=== PATIENT | female | born 1955 | race Caucasian/White ===

== ENCOUNTER 2022-08-20 06:04 | Day surgery (SDC) | payer MEDICARE, OTHER ==
[2022-08-19 08:48] LABS: BASOPHILS # (AUTO) 0.1 X10'3 (0-0.2); BASOPHILS % (AUTO) 0.9 % (0-1); EOSINOPHILS # (AUTO) 0.2 X10'3 (0-0.9); EOSINOPHILS % (AUTO) 2.9 % (0-6); HEMATOCRIT 34.4 % (35.0-45.0); HEMOGLOBIN 11.5 g/dl (12.0-16.0); LYMPHOCYTES # (AUTO) 1.4 X10'3 (1.1-4.8); LYMPHOCYTES % (AUTO) 24.8 % (21-51); MEAN CORPUSCULAR HEMOGLOBIN 34.8 PG (27.0-31.0); MEAN CORPUSCULAR HGB CONC 33.4 g/dL (33.0-36.5); MEAN PLATELET VOLUME 8.9 FL (7.4-10.4); MONOCYTES # (AUTO) 0.4 X10'3 (0-0.9); MONOCYTES % (AUTO) 7.5 % (2-12); NEUTROPHILS # (AUTO) 3.5 X10'3 (1.8-7.7); NEUTROPHILS % (AUTO) 63.9 % (42-75); PLATELET COUNT 229 X10'3 (140-440); RED BLOOD COUNT 3.31 X10'6 (4.20-5.60); WHITE BLOOD COUNT 5.5 X10'3 (4.5-11.0)
[2022-08-19 08:55] LABS: ALBUMIN 3.5 G/DL (3.4-5.0); ANION GAP 8 (8-16); BLOOD UREA NITROGEN 21 MG/DL (7-18); BUN/CREATININE RATIO 17.8 (6.6-38.0); CALCIUM 8.4 MG/DL (8.5-10.1); CHLORIDE 109 MMOL/L (99-107); CREATININE 1.18 MG/DL (0.40-0.90); GLUCOSE 111 MG/DL (70-104); POTASSIUM 4.7 MMOL/L (3.5-5.1); SODIUM 141 MMOL/L (135-145); TOTAL CARBON DIOXIDE 24.4 MMOL/L (24-32); eGFR 46 ML/MIN
[2022-08-19 09:00] LABS: APTT 27 SECONDS (22-32)
[~2022-08-20] VITALS: Ht 157.5 cm; Wt 82.9 kg
[2022-08-20] VITALS (11 sets, daily range): BP systolic 128–152; BP diastolic 54–76
[~2022-08-20 06:04] MED LIST: CALC500T11 PO; DIPH-681 PO; EZET10TA6 PO; FLUT16SP26 BOTHNARES; LOSA25TA96 PO; MELA3TAB39 PO; METO100T7 PO; NITR0.4T51 SL; [UNRECOGNIZED DRUG - CODE] PO
[2022-08-20] MEDS ORDERED: diphenhydrAMINE 25mg capsule PO PRN (06:40)
[2022-08-20] MEDS ORDERED: normal saline 1,000 ML IV SCH (06:40)
[2022-08-20] MEDS ORDERED: LORazepam 0.5 MG tablet PO PRN (06:40)
[2022-08-20] MEDS ORDERED: METO-411 PO (07:06)
[2022-08-20] MEDS ORDERED: ALLO100T PO (07:06)
[2022-08-20] MEDS ORDERED: VITAMIN D (07:06)
[2022-08-20] MEDS ORDERED: EZET10TA48 PO (07:06)
[2022-08-20] MEDS ORDERED: CALC0.2535 PO (07:06)
[2022-08-20] MEDS ORDERED: LOSA50TA64 PO (07:06)
[2022-08-20] MEDS ORDERED: FERR325T28 PO (07:07)
[2022-08-20] MEDS ORDERED: VITAMIN B (07:07)
[2022-08-20] MEDS ORDERED: CALC-467 (07:09)
[2022-08-20] MEDS ORDERED: VIT1CAPS27 PO (07:12)
[2022-08-20] MEDS ORDERED: testosterone cream (07:12)
[2022-08-20] MEDS ORDERED: midazolam 1 mg/ML 2ml injection ONE ×2 (07:18→08:50)
[2022-08-20] MEDS ORDERED: fentaNYL/PF 50MCG/1 ML 2ML syringe ONE (07:18)
[2022-08-20] MEDS ORDERED: nitroGLYCERIN-Tridil 50MG/D5W 250 ML IV ONE (07:18)
[2022-08-20] MEDS ORDERED: verapamil 2.5 mg/ml inj IV ONE (07:18)
[2022-08-20] MEDS ORDERED: heparin 1,000unit/ml 10ml vial 10 ML ONE (07:18)
[2022-08-20] MEDS ORDERED: iohexol 350MG/ML 100ml bottle IV ONE (07:18)
[2022-08-20] MEDS ORDERED: LIDOcaine 1% (10mg/ml) 2ml vial ONE (07:19)
== END 2022-08-20 14:00 | disposition home or self-care (01) ==
LOC: SSTAY O 06:04
PROVIDERS: ATTEND Internal Medicine Cardiovascular Disease
DX: R94.39 Abnormal result of other cardiovascular function study (principal); I25.10 Atherosclerotic heart disease of native coronary artery without angina pectoris; E21.3 Hyperparathyroidism, unspecified; I12.9 Hypertensive chronic kidney disease with stage 1 through stage 4 chronic kidney disease, or unspecified chronic kidney disease; N18.1 Chronic kidney disease, stage 1; E78.5 Hyperlipidemia, unspecified; Z98.84 Bariatric surgery status; Z85.3 Personal history of malignant neoplasm of breast; Z79.899 Other long term (current) drug therapy; Z98.890 Other specified postprocedural states; Z98.51 Tubal ligation status; Z90.49 Acquired absence of other specified parts of digestive tract; Z90.710 Acquired absence of both cervix and uterus; Z80.51 Family history of malignant neoplasm of kidney; Z80.1 Family history of malignant neoplasm of trachea, bronchus and lung; Z79.01 Long term (current) use of anticoagulants
CPT/HCPCS: 36415; 76937; 80048; 85025; 85610; 85730; 93005; 93458; 99152; 99153; C1769; C1894; J1644; J2250; J3010; J3490; J7030; Q0163; Q9967; A4620; A5120; A6258; A6402